=== PATIENT | female | born 1980 | race African-American/Black ===

== ENCOUNTER 2017-10-02 07:10 | Inpatient (IN) ==
[2017-10-02] MEDS ORDERED: CLINDAMYCIN INJ 900 MG in PREMIX 1 EACH IV ONE (07:49)
[2017-10-02] MEDS ORDERED: CITRIC ACID/SODIUM CITRATE 30 ML UDCUP PO ONE (07:49)
[2017-10-02] MEDS ORDERED: OXYTOCIN/LR 30 UNIT/1,000 ML BAG IV ONE (07:50)
[2017-10-02] MEDS ORDERED: OXYTOCIN 10 UNIT/ML VIAL IM ONE (07:50)
[2017-10-02] MEDS ORDERED: LACTATED RINGERS 1,000 ML IV ONE (07:53)
[2017-10-02] MEDS ORDERED: PROMETHAZINE 25 MG/1 ML VIAL IM ONE (07:53)
[2017-10-02] MEDS ORDERED: hydrOXYzine HCL 25 MG/1 ML VIAL IM PRN (07:53)
[2017-10-02] MEDS ORDERED: FAMOTIDINE 20 MG/2 ML VIAL IV ONE (07:53)
[2017-10-02] MEDS ORDERED: diphenhydrAMINE 50 MG/1 ML VIAL IV PRN (07:53)
[2017-10-02] MEDS ORDERED: LACTATED RINGERS 1,000 ML IV SCH ×2 (08:00→10:00)
[2017-10-02 08:34] LABS: Basophils % 0.2 % (0.0-0.8); Eosinophils # 0.1 10*3/uL (0.0-0.87); Eosinophils % 1.2 % (0.00-10.9); Hemoglobin 12.5 GM/DL (12.0-16.0); Immature Granulocytes % 1.3 %; Immature Granulocytes Absolute 0.13 #; Lymphocytes % 20.1 % (21.3-54.2); Mean Corpuscular HGB Conc 34.7 GM/DL (32-36); Mean Corpuscular Hemoglobin 32 PG (27-34); Mean Corpuscular Volume 93.3 FL (87-102); Mean Platelet Volume 11.4 FL (9.6-12.0); Monocytes # 0.9 10*3/uL (0.11-0.8); Monocytes % 9.2 % (1.7-12.7); Neutrophils # 6.6 10*3/uL (1.4-7.4); Platelet Count 171 T/CUMM (130-400); Red Blood Count 3.86 MC/CUMM (3.8-5.5); Red Cell Distribution Width 13.1 % (9.3-17.3); White Blood Count 9.7 T/CUMM (4-12)
[2017-10-02 09:03] LABS: Albumin 2.8 G/DL (3.4-5.0); Bilirubin,Total 0.8 MG/DL (0.2-1.0); Calcium 8.9 MG/DL (8.5-10.1); Osmolality,Calculated 272.7 MOS/KG (273-304); Potassium 4.3 MMOL/L (3.5-5.1)
[2017-10-02] MEDS ORDERED: RHO(D) IMMUNE GLOBULIN 300 MCG SYRINGE IM ONE (09:58)
[2017-10-02] MEDS ORDERED: ONDANSETRON 4 MG/2 ML VIAL IV PRN (09:58)
[2017-10-02] MEDS ORDERED: ACETAMINOPHEN 325 MG TABLET PO PRN (09:58)
[2017-10-02] MEDS ORDERED: IBUPROFEN 800 MG TABLET PO PRN (09:58)
[2017-10-02] MEDS ORDERED: OXYTOCIN/LR 20 UNIT/1,000 ML BAG IV ONE ×2 (09:58→22:23)
[2017-10-02] MEDS ORDERED: ceFAZolin 1,000 MG in SYRINGE 1 EACH IV SCH (10:00)
[2017-10-02 10:11] LABS: Cord Arterial Blood HCO3 19.1 MMOL/L
[2017-10-02 10:15] LABS: Cord Venous Blood HCO3 21.8 MMOL/L; Cord Venous Blood PO2 27.6
[2017-10-02] MEDS ORDERED: HYDROmorphone 2 MG/1 ML VIAL IV PRN (10:30)
[2017-10-02] MEDS ORDERED: fentaNYL 100 MCG/2 ML VIAL ONE (10:55)
[2017-10-02] MEDS ORDERED: MIDAZOLAM 2 MG/2 ML VIAL ONE (10:55)
[2017-10-02] MEDS ORDERED: MORPHINE 10 MG/10 ML VIAL ONE (10:56)
[2017-10-02 10:58] LABS: Apearance,Urine CLEAR (Clear); Bacteria,Urine Occasional /HPF (Few); Bilirubin,Urine Negative (Negative); Blood, Urine Small mg/dL (Negative); Glucose,Urine (UA) Negative (Negative); Ketones,Urine 5 mg/dL (Negative); Mucus,Urine Occasional /LPF (Occasional); Nitrite,Urine Negative (Negative); Protein,Urine Negative; RBC,Urine 5 /HPF (0-4); Squamous Epithelial Cell,Urine Occasional /HPF (0-10); Urine Color Straw (Yellow); Urine Specific Gravity 1.009 (1.001-1.035); Urine Urobilinogen < 2.0 EU/DL (0.2-1.0); WBC,Urine 1 /HPF (0-6)
[2017-10-02] MEDS ORDERED: ONDANSETRON 4 MG/2 ML VIAL ONE (11:06)
[2017-10-02] MEDS ORDERED: HYDROmorphone 2 MG/1 ML VIAL ONE (11:23)
[2017-10-02] MEDS: CLINDAMYCIN INJ 900 MG in PREMIX 1 EACH IV SCH (17:18)
[2017-10-02 18:06] LABS: Basophils # 0.1 10*3/uL (0.0-0.2); Basophils % 0.3 % (0.0-0.8); Eosinophils % 0.1 % (0.00-10.9); Hematocrit 31.2 VOL% (35.7-47.0); Hemoglobin 10.7 GM/DL (12.0-16.0); Immature Granulocytes % 0.8 %; Immature Granulocytes Absolute 0.15 #; Lymphocytes # 2.5 10*3/uL (1.4-4.0); Lymphocytes % 13.3 % (21.3-54.2); Mean Corpuscular HGB Conc 34.3 GM/DL (32-36); Mean Corpuscular Hemoglobin 32 PG (27-34); Mean Corpuscular Volume 92.9 FL (87-102); Mean Platelet Volume 10.4 FL (9.6-12.0); Monocytes # 1.2 10*3/uL (0.11-0.8); Monocytes % 6.3 % (1.7-12.7); Neutrophils # 14.6 10*3/uL (1.4-7.4); Neutrophils % 79.2 % (38.7-73.9); Platelet Count 153 T/CUMM (130-400); Red Blood Count 3.36 MC/CUMM (3.8-5.5); Red Cell Distribution Width 12.9 % (9.3-17.3); White Blood Count 18.4 T/CUMM (4-12)
[2017-10-03] MEDS: CLINDAMYCIN INJ 900 MG in PREMIX 1 EACH IV SCH (01:50)
[2017-10-03 10:01] LABS: Basophils # 0.1 10*3/uL (0.0-0.2); Basophils % 0.4 % (0.0-0.8); Eosinophils # 0.1 10*3/uL (0.0-0.87); Eosinophils % 0.7 % (0.00-10.9); Hematocrit 27.8 VOL% (35.7-47.0); Hemoglobin 9.7 GM/DL (12.0-16.0); Immature Granulocytes % 1.2 %; Immature Granulocytes Absolute 0.17 #; Lymphocytes # 2.1 10*3/uL (1.4-4.0); Lymphocytes % 15.6 % (21.3-54.2); Mean Corpuscular HGB Conc 34.9 GM/DL (32-36); Mean Corpuscular Hemoglobin 32 PG (27-34); Mean Corpuscular Volume 92.4 FL (87-102); Mean Platelet Volume 11.9 FL (9.6-12.0); Monocytes % 7.2 % (1.7-12.7); Neutrophils # 10.2 10*3/uL (1.4-7.4); Neutrophils % 74.9 % (38.7-73.9); Platelet Count 147 T/CUMM (130-400); Red Blood Count 3.01 MC/CUMM (3.8-5.5); Red Cell Distribution Width 13.1 % (9.3-17.3); White Blood Count 13.7 T/CUMM (4-12)
[2017-10-03] MEDS ORDERED: RHO(D) IMMUNE GLOBULIN 300 MCG SYRINGE IM ONE (10:06)
[2017-10-03] MEDS: MULTIVITAMIN (PRENATAL) TABLET PO SCH (11:04)
[2017-10-03] MEDS: DOCUSATE SODIUM 100 MG CAPSULE PO SCH ×2 (11:04→22:01)
[2017-10-03] MEDS: FERROUS SULFATE 325 MG TABLET PO SCH ×2 (11:05→22:01)
[2017-10-03] MEDS: SIMETHICONE CHEW 80 MG TABLET PO PRN (14:13)
[2017-10-04] MEDS: DOCUSATE SODIUM 100 MG CAPSULE PO SCH ×2 (09:09→21:23)
[2017-10-04] MEDS: MULTIVITAMIN (PRENATAL) TABLET PO SCH (09:09)
[2017-10-04] MEDS: FERROUS SULFATE 325 MG TABLET PO SCH ×2 (09:09→21:23)
[2017-10-04] MEDS: MAGNESIUM HYDROXIDE SUSP 30 ML UDCUP PO PRN ×2 (09:09→21:23)
[2017-10-04] MEDS: SIMETHICONE CHEW 80 MG TABLET PO PRN ×2 (09:09→21:24)
[2017-10-04 10:48] LABS: Hematocrit 28.7 VOL% (35.7-47.0); Hemoglobin 9.9 GM/DL (12.0-16.0)
[2017-10-05] MEDS ORDERED: MAGNESIUM CITRATE 300 ML BOTTLE PO PRN (04:21)
[2017-10-05] MEDS: FERROUS SULFATE 325 MG TABLET PO SCH (09:06)
[2017-10-05] MEDS: MULTIVITAMIN (PRENATAL) TABLET PO SCH (09:06)
[2017-10-05] MEDS: DOCUSATE SODIUM 100 MG CAPSULE PO SCH (09:07)
[2017-10-05 15:57] VITALS: BP 127/67
== END 2017-10-05 17:10 | disposition home or self-care (01) | DRG 766 ==
LOC: N.LDOUT 07:10 → N.LD 07:11 → N.OB 12:15
PROVIDERS: ADMIT Obstetrics & Gynecology; ATTEND Obstetrics & Gynecology
PROC: LDCSECT (ICD-10-PCS; 2017-10-02 09:00)